=== PATIENT | male | born 1960 | race Caucasian/White ===

== ENCOUNTER 2016-04-23 14:58 | Emergency (ER) | payer BC, OTHER ==
[2016-04-23 15:34] VITALS: BMI 34.8
[2016-04-23] MEDS ORDERED: morphine CARPU-JECT 4 MG/1 ML DISP.SYRIN IVPUSH ONE ×2 (15:50→17:47)
[2016-04-23] MEDS ORDERED: SODIUM CHLORIDE 1,000 ML IV SCH (16:00)
[2016-04-23] MEDS ORDERED: morphine CARPU-JECT 4 MG/1 ML DISP.SYRIN ONE ×2 (16:02→19:14)
[2016-04-23 16:09] LABS: BASOPHIL 0.7 % (0-2.0); EOSINOPHIL 1.4 % (0-4.5); MCH 29.2 pg (25.7-33.7); MCHC 32.5 g/dl (32.0-35.9); MEAN PLT VOLUME 9.9 fl (7.5-11.1); NEUTROPHILS 59.7 % (42.8-82.8); PLATELET COUNT 205 K/MM3 (134-434); RDW 14.2 % (11.9-15.9)
[2016-04-23 16:39] LABS: ANION GAP 6 (8-16); BILIRUBIN,TOTAL 0.5 mg/dL (0.2-1.0); CALCIUM 9.1 mg/dL (8.5-10.1); CO2 29 mmol/L (21-32); CREATININE 1.1 mg/dL (0.7-1.3); GLUCOSE,RANDOM 73 mg/dL (74-106); SGPT/ALT 40 U/L (12-78); TOT PROT 6.8 g/dl (6.4-8.2)
[2016-04-23 16:40] LABS: ALK PHOS 60 U/L (45-117)
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
[2016-04-23 18:53] LABS: SGOT/AST 22 U/L (15-37)
[2016-04-23 20:29] VITALS: BP 135/80; PULSE 78; TEMP 98.3
--- NOTE | 2016-04-27 11:12 | EKG ---
Test Reason : Blood Pressure : / mmHG Vent. Rate : 068 BPM Atrial Rate : 035 BPM P-R Int : 000 ms QRS Dur : 112 ms QT Int : 410 ms P-R-T Axes : 000 057 027 degrees QTc Int : 435 ms ATRIAL FIBRILLATION ABNORMAL ECG WHEN COMPARED WITH ECG OF 14-MAR-2005 14:15, NO SIGNIFICANT CHANGE WAS FOUND Confirmed by REY LUTHER MD ([id number]) on 04/27/2016 11:12:09 AM Referred By: Confirmed By:REY LUTHER MD
== END 2016-04-23 20:28 | disposition home or self-care (01) ==
LOC: JER 14:58
PROC: 3E0337Z Introduction of Electrolytic and Water Balance Substance into Peripheral Vein, Percutaneous Approach (ICD-10-PCS; principal; 2016-04-23)
PROC: 3E033NZ Introduction of Analgesics, Hypnotics, Sedatives into Peripheral Vein, Percutaneous Approach (ICD-10-PCS; 2016-04-23)
DX: M54.2 Cervicalgia (principal); M54.5 Low back pain; R07.89 Other chest pain; H93.13 Tinnitus, bilateral; V43.52XA Car driver injured in collision with other type car in traffic accident, initial encounter; Y92.414 Local residential or business street as the place of occurrence of the external cause; Y93.89 Activity, other specified
CPT/HCPCS: 36415; 70450-TC; 71020-TC; 72125-TC; 73523-TC; 73552-TC-RT; 73590-TC-RT; 74177-TC; 80053; 85025; 93005; 93010; 99284-25